=== PATIENT | female | born 1995 | race Caucasian/White ===

== ENCOUNTER 2018-12-18 01:09 | Emergency (ER) | payer BC ==
[2018-12-18] MEDS ORDERED: Ibuprofen TAB* 600 MG PO ONE (02:09)
--- NOTE | 2018-12-18 02:16 | ED ---
Lower Extremity - HPI Summary HPI Summary: Pt is a 23 y/o F presenting to the ED with a chief complaint of LLE pain. She states it initially came on about 4 years ago and has been intermittent since then, but over the past 6 months it has gotten worse. She has not seen a doctor about this in the past. She reports mild weakness, pain in her L thigh and knee , decreased ability to walk, and the pain is described as a shooting, electrical sensation. She denies numbness, tingling, back pain, and fever. - History of Current Complaint Chief Complaint: EDExtremityLower Stated Complaint: L LEG PAIN PER PT Time Seen by Provider: 12/18/18 01:38 Hx Obtained From: Patient Mechanism Of Injury: Unknown Onset/Duration: Still Present Severity Initially: Moderate Severity Currently: Moderate Pain Intensity: 6 Pain Scale Used: 0-10 Numeric Timing: Intermittent, Lasting Days Associated Signs And Symptoms: Positive: Knee Pain. Negative: Fever Aggravating Factor(s): Standing, Weight Bearing Alleviating Factor(s): Rest Able to Bear Weight: Yes - with difficulty - Allergies/Home Medications Allergies/Adverse Reactions: Allergies Allergy/AdvReac Type Severity Reaction Status Date / Time No Known Allergies Allergy Verified 12/18/18 01:14 PMH/Surg Hx/FS Hx/Imm Hx Previously Healthy: Yes Endocrine/Hematology History: Denies: Hx Diabetes Cardiovascular History: Denies: Hx Hypertension Infectious Disease History: No Infectious Disease History: Denies: Traveled Outside the [place] in Last 30 Days - Family History Known Family History: Negative: Diabetes - Social History Alcohol Use: Occasionally Hx Substance Use: No Substance Use Type: Reports: None Hx Tobacco Use: No Smoking Status (MU): Never Smoked Tobacco Review of Systems Negative: Fever Positive: Myalgia, Decreased ROM. Negative: Other - back pain Positive: Weakness. Negative: Paresthesia, Numbness All Other Systems Reviewed And Are Negative: Yes Physical Exam - Summary Physical Exam Summary: Constitutional: Well-developed, Well-nourished, Alert. (-) Distressed Skin: Warm, Dry HENT: Normocephalic; Atraumatic Eyes: Conjunctiva normal Neck: Musculoskeletal ROM normal neck. (-) JVD, (-) Stridor, (-) Tracheal deviation Cardio: Rhythm regular, rate normal, Heart sounds normal; Intact distal pulses; Radial pulses are 2+ and symmetric. (-) Murmur Pulmonary/Chest wall: Effort normal. (-) Respiratory distress, (-) Wheezes, (-) Rales Abd: Soft, (-) tenderness, (-) Distension, (-) Guarding, (-) Rebound Musculoskeletal: Left knee with medial and lateral joint laxity. Negative anterior posterior drawer sign. No bony tenderness or effusion. Patient able to ambulate Lymph: (-) Cervical adenopathy Neuro: Alert, Oriented x3 Psych: Mood and affect Normal Triage Information Reviewed: Yes Vital Signs On Initial Exam: Initial Vitals Temp Pulse Resp BP Pulse Ox 97.8 F 110 16 151/92 99 12/18/18 01:12 12/18/18 01:12 12/18/18 01:12 12/18/18 01:12 12/18/18 01:12 Vital Signs Reviewed: Yes Procedures - Sedation Patient Received Moderate/Deep Sedation with Procedure: No Diagnostics - Vital Signs Vital Signs Temp Pulse Resp BP Pulse Ox 12/18/18 01:12 97.8 F 110 16 151/92 99 - Laboratory Lab Statement: Any lab studies that have been ordered have been reviewed, and results considered in the medical decision making process. Lower Extremity Course/Dx - Course Course Of Treatment: Patient is here with left lower extremity pain that has been present for 4 years. Patient's never seen a doctor for this. Patient does have pain in her knee with evidence of joint laxity. Patient's symptoms could also represent sciatica although I think this is less likely. Patient is given ortho surgery follow-up for possible MRI and further management. - Diagnoses Provider Diagnoses: Left knee pain Discharge ED - Sign-Out/Discharge Documenting (check all that apply): Patient Departure - Discharge Plan Condition: Stable Disposition: HOME Patient Education Materials: Leg Pain (ED) Referrals: Reuben Peters MD [Medical Doctor] - Additional Instructions: Please follow up with Dr. Peters of orthopedics within the next 1-3 days. Use 600mg Ibuprofen as needed every 6 hours. Elevate your leg as much as you can, and try to keep it wrapped until you follow up with ortho. Return to the emergency department with any new or worsening symptoms. - Billing Disposition and Condition Condition: STABLE Disposition: Home - Attestation Statements Document Initiated by Scribe: Yes Documenting Scribe: Usha Tirado Provider For Whom Benjaminibe is Documenting (Include Credential): Wilmer Crawley MD. Scribe Attestation: IUsha, scribed for Wilmer Crawley MD. on 12/18/18 at 0459. Scribe Documentation Reviewed: Yes Provider Attestation: The documentation as recorded by the scribe, Usha Tirado accurately reflects the service I personally performed and the decisions made by me, Wilmer Crawley MD. Status of Scribe Document: Viewed
[2018-12-18 02:51] VITALS: BP 148/92
== END 2018-12-18 02:50 | disposition home or self-care (01) ==
LOC: ED 01:09
DX: M25.562 Pain in left knee (principal)
CPT/HCPCS: 99282; A9270-GY